=== PATIENT | male | born 1990 ===

== ENCOUNTER 2020-11-24 14:31 | Emergency (ER) | payer OTHER ==
[~2020-11-24] VITALS: Ht 177.8 cm; Wt 86.2 kg
[2020-11-24 16:45] LABS: Basophils # (auto) 0 10 ^3/uL (0-0.2); Eosinophils # (auto) 0.1 10 ^3/uL (0-0.8); Eosinophils % (auto) 0.9 % (0.0-7.0); Monocytes # (auto) 0.7 10 ^3/uL (0-1.3); Nucleated Red Blood Cells % 0.2 %
[2020-11-24 16:46] LABS: Basophils % (auto) 0.2 % (0.0-2.0); Hematocrit 54.1 % (41.0-53.0); Hemoglobin 18.6 g/dL (13.5-17.5); Lymphocytes # (auto) 1.8 10 ^3/uL (0.4-5.4); Lymphocytes % (auto) 21.8 % (10.0-50.0); Mean Corpuscular Hemoglobin 30.1 pg (28.0-32.0); Mean Corpuscular Hgb Conc. 34.3 g/dL (32.0-36.0); Mean Corpuscular Volume 87.7 fL (80.0-100.0); Monocytes % (auto) 8.8 % (0.0-12.0); Neutrophils # (auto) 5.5 10 ^3/uL (1.6-8.6); Neutrophils % (auto) 68.3 % (37.0-80.0); Red Blood Cells 6.17 10^6/uL (4.5-5.90); Red Cell Distribution Width 13.6 % (11.8-14.3); White Blood Cell 8.1 10^3/uL (4.4-10.8)
[2020-11-24 17:04] LABS: Alanine Aminotransferase 67 U/L (16-61); Albumin 4.4 g/dL (3.4-5.0); Anion Gap 11 (5-15); Aspartate Aminotransferase 37 U/L (15-37); BUN/Creatinine Ratio 15.2; Blood Urea Nitrogen 16 mg/dL (7-18); Calcium 9.5 mg/dL (8.5-10.1); Carbon Dioxide 18 mmol/L (21-32); Chloride 108 mmol/L (98-107); GFR African American 105 mL/min; GFR Non-African American 87 mL/min; Glucose 90 mg/dL (74-106); Potassium 4.2 mmol/L (3.5-5.1); Sodium 137 mmol/L (136-145)
[2020-11-24 17:12] LABS: Alkaline Phosphatase 122 U/L (45-117); Bilirubin, Total 1.9 mg/dL (0.2-1.0); Total Protein 8.7 g/dL (6.4-8.2)
[2020-11-24] MEDS ORDERED: IBUPROFEN 600 MG TAB PO ONE (20:15)
[2020-11-24 20:17] VITALS: BP 127/79
== END 2020-11-24 20:22 | disposition home or self-care (01) ==
LOC: EDBD 14:31 → ER 14:31 → EEVIPCON 14:31 → ER 20:20
DX: R07.89 Other chest pain (principal)
CPT/HCPCS: 36415; 71250; 80053; 84484; 85025; 93005